=== PATIENT | female | born 1950 ===

== ENCOUNTER 2016-09-30 20:55 | Emergency (ER) | payer OTHER, MEDICAID ==
[2016-09-30 21:33] LABS: URINE BILIRUBIN NEGATIVE (NEGATIVE); URINE BLOOD 1+ (NEGATIVE); URINE GLUCOSE (UA) NEGATIVE (NEGATIVE); URINE LEUKOCYTE ESTERASE 2+ (NEGATIVE); URINE NITRITE NEGATIVE (NEGATIVE); URINE PROTEIN TRACE (NEGATIVE); URINE UROBILINOGEN NORMAL (0-1 mg/dl)
[2016-09-30 21:35] LABS: URINE APPEARANCE HAZY; URINE COLOR YELLOW
[2016-09-30] MEDS ORDERED: TRAMADOL HCL 50 MG TABLET ONE (21:41)
[2016-09-30 21:45] LABS: URINE BACTERIA 3+; URINE EPITHELIAL CELLS 15-20 /hpf; URINE WBC 15-20 /hpf
[2016-09-30] MEDS ORDERED: CIPROFLOXACIN 500 MG TABLET ONE (22:03)
[2016-09-30] MEDS ORDERED: METRONIDAZOLE 500 MG TABLET ONE (22:03)
--- NOTE | 2016-10-01 07:54 | CT ---
ABD/PELVIS W/O CON COMPARISON: None HISTORY: 66-year-old female with constant left lower quadrant abdominal pain with a sudden onset yesterday. Past medical history includes a diverticulosis. Past surgical history includes cholecystectomy and hysterectomy. Technique: Using a [email or web address] [address] scanner, images were obtained from the diaphragm to the floor the pelvis. No intravenous contrast. An automated dose reduction technique was used to minimize patient radiation dose. Dose: CTDIvol (mGy): 11.20 DLP(mGycm): 579.00 FINDINGS: Lung bases: The base of the right middle lobe and the base of the right lower lobe, there are thick bandlike scars. Inferior mediastinum and heart: Normal Liver: Normal Gallbladder: Cholecystectomy. Bile ducts: Normal. Pancreas: Moderate atrophy. Spleen: Normal Adrenal glands: Normal Kidneys: Normal right kidney. Left kidney 2.2 cm cyst, interpolar region at the lateral margin. Ureters: Normal Urinary bladder: Normal Uterus and adnexa: Hysterectomy Blood vessels: Normal. Lymph nodes: Normal Stomach: Normal Duodenum: Normal Small intestine: Normal Appendix: Normal Colon: In the proximal sigmoid colon 4.6 x 4.1 cm focal enlargement of the wall, surrounded by diverticuli and inflammatory stranding in the adjacent fat. No abscess or free air. Diverticuli the remainder of the sigmoid colon and at the hepatic flexure. Abdominal wall and supporting musculature: Normal Bones: No acute finding. L5-S1 moderate disc narrowing and mild facet osteoarthritis. IMPRESSION: 1. In the proximal sigmoid colon, 4.6 x 4.1 cm masslike enlargement with inflammatory changes in the adjacent fat and surrounding diverticuli. Differential diagnosis includes diverticulitis or combination of a mass and diverticulitis. No evidence of perforation or abscess. 2. Incidental findings include scarring in the bases of the right middle lobe and the right lower lobe, cholecystectomy, atrophy of the pancreas, left kidney 2.2 cm cyst, and hysterectomy. 3. L5-S1 moderate disc narrowing and mild facet osteoarthritis. Recommendation: Repeat CT in one month to assess for complete resolution of the mass in the proximal sigmoid colon. Preliminary report by [facility] radiologist Osvaldo Salas M.D. 09/30/2016 at 22:23
== END 2016-09-30 23:16 | disposition home or self-care (01) ==
LOC: ED 20:55
DX: K57.92 Diverticulitis of intestine, part unspecified, without perforation or abscess without bleeding (principal); I10 Essential (primary) hypertension
CPT/HCPCS: 81001; 74176; 99284; 99283; A9270 ×3